=== PATIENT | male | born 1950 | race African-American/Black ===

== ENCOUNTER 2016-12-23 22:23 | Emergency (ER) | payer BC ==
[2016-12-24] MEDS ORDERED: ONDANSETRON 4 MG TAB.RAPDIS PO ONE (01:02)
[2016-12-24] MEDS ORDERED: OXYCODONE-ACETAMINOPHEN 5-325 MG TABLET PO ONE (01:02)
--- NOTE | 2016-12-24 01:05 | ER Document Report ---
HPI - HPI Patient complains to provider of: Dental pain Pain Level: 5 Context: Patient is a 66-year-old male that comes emergency department with chief complaint of pain in his left lower jaw, states she was evaluated by the dentist , placed on penicillin for 10 days, has a follow-up appointment already, he is taking diclofenac for pain, he states he is still in a lot of pain. Patient denies any fever, sore throat, neck swelling. - DERM Skin Color: Normal Past Medical History - General Information source: Patient - Social History Smoking Status: Never Smoker Frequency of alcohol use: None Lives with: Family Family History: Reviewed & Not Pertinent Patient has suicidal ideation: No Patient has homicidal ideation: No - Past Medical History Cardiac Medical History: Reports: Hx Hypertension Renal/ Medical History: Denies: Hx Peritoneal Dialysis Musculoskeltal Medical History: Denies Hx Arthritis, Denies Hx Gout Surgical Hx: Negative - Immunizations Immunizations up to date: Yes Hx Diphtheria, Pertussis, Tetanus Vaccination: Yes Vertical Provider Document - CONSTITUTIONAL General Appearance: WD/WN, No Apparent Distress - INFECTION CONTROL TRAVEL OUTSIDE OF THE [place] IN LAST 30 DAYS: No - HEENT HEENT: Atraumatic, Normocephalic Mouth Diagram: 1 - Dental caries with pulpitis, no abscess or significant swelling noted, no other abnormality noted - NECK Neck: Normal Inspection - RESPIRATORY Respiratory: Breath Sounds Normal, No Respiratory Distress - CARDIOVASCULAR Cardiovascular: Regular Rate, Regular Rhythm - GI/ABDOMEN Gastrointestinal: Abdomen Soft, Abdomen Non-Tender - BACK Back: Normal Inspection - MUSCULOSKELETAL/EXTREMETIES Musculoskeletal/Extremeties: MAEW, FROM, Non-Tender. negative: Tender - NEURO Level of Consciousness: Awake, Alert, Appropriate Motor/Sensory: No Motor Deficit, No Sensory Deficit - DERM Integumentary: Warm, Dry, No Rash Course - Re-evaluation Re-evalutation: Patient with dental pain, providing with Percocet for pain, patient is very on amoxicillin, no abscess or evidence of soft tissue infection. Patient hypertensive, however he is requesting to leave, states he will take his blood pressure medication at home which she is due for this morning. Discharge - Discharge Clinical Impression: Pain, dental Condition: Stable Disposition: HOME, SELF-CARE Additional Instructions: Take the Percocet as directed for pain if needed, continue your penicillin antibiotic, follow up with your dentist. You can take the diclofenac for pain, however I recommend skipping this for 1-2 days and drinking plenty of fluids because you were taking this frequently. Return to emergency department for any concerning or worsening symptoms including swelling, difficulty swallowing, etc. Prescriptions: Oxycodone HCl/Acetaminophen [Percocet 5-325 mg Tablet] 1 - 2 tab PO Q4H PRN #20 tablet PRN Reason: Referrals: NILS TY MD [Primary Care Provider] - Follow up as needed
[2016-12-24 01:31] VITALS: BP 171/94
== END 2016-12-24 01:29 | disposition home or self-care (01) ==
LOC: ER 22:23
DX: K08.9 Disorder of teeth and supporting structures, unspecified (principal); R68.84 Jaw pain; I10 Essential (primary) hypertension
CPT/HCPCS: 99282; S0119

== ENCOUNTER → 2017-06-08 | Outpatient (CLI) | payer BC ==
--- NOTE | 2017-06-08 11:52 | RADIOLOGY REPORT (SQ) ---
EXAM DESCRIPTION: CTA CHEST COMPLETED DATE/TIME: 06/08/2017 11:31 am REASON FOR STUDY: CHEST PAIN (R07.9) R07.9 CHEST PAIN, UNSPECIFIED COMPARISON: None. TECHNIQUE: CT scan of the chest performed using helical scanning technique with dynamic intravenous contrast injection. Images reviewed with lung, soft tissue and bone windows. Reconstructed coronal and sagittal MPR images reviewed. Additional 3 dimensional post-processing performed to develop Maximal Intensity Projection images (MS P). All images stored on PACS. All CT scanners at this facility use dose modulation, iterative reconstruction, and/or weight based d osing when appropriate to reduce radiation dose to as low as reasonably achievable (ALARA). [facility]: Dose Right [facility]: CareDose [facility]: Dose Right [facility]: Teradose 4D [facility]: [employer] Mobile CONTRAST TYPE AND DOSE: contrast/concentration: Isovue 370.00 mg/ml; Total Contrast Delivered: 68.0 ml; Total Saline Delivered: 111.0 ml RENAL FUNCTION: Creatinine 1.1. RADIATION DOSE: Up-to-date CT equipment and radiation dose reduction techniques were employed. CTDIv ol: 9.4 - 13.4 mGy. DLP: 548 mGy-cm. . LIMITATIONS: None. FINDINGS: LUNGS AND PLEURA: No masses, infiltrates, pneumothorax. No pleural effusions, calcificati ons. AORTA AND GREAT VESSELS: No aneurysm or dissection. HEART: No pericardial effusion. PULMONARY ARTERIES: No emboli visualized in the main pulmonary arteries or the segmental branches. HILAR AND MEDIASTINAL STRUCTURES: No identified masses or abnormal nodes. HARDWARE: None in the chest. UPPER ABDOMEN: Several renal cysts, incompletely imaged. Limited exam. THYROID AND OTHER SOFT TISSUES: No masses. No adenopathy. BONES: No acute or significant finding. 3D MIPS: Confirm above findings. OTHER: No other significant finding. IMPRESSION: NORMAL CTA OF THE CHEST. NO PULMONARY EMBOLI. TECHNICAL DOCUMENTATION: JOB ID: [id number] Quality ID # [id number]: Final reports with documentation of one or more dose reduction techniques (e.g., Au tomated exposure control, adjustment of the mA and/or kV according to patient size, use of iterative reconstruction technique) 2010 [employer]- All Rights Reserved
== END ==
LOC: RAD 10:55
PROVIDERS: ATTEND Internal Medicine
DX: R07.9 Chest pain, unspecified (principal)
CPT/HCPCS: 71275; 82565

== ENCOUNTER 2017-06-23 12:58 | Emergency (ER) | payer OTHER, BC ==
[2017-06-23 13:04] VITALS: BP 132/86
--- NOTE | 2017-06-23 13:16 | ER Document Report ---
ED General - General Chief Complaint: High Blood Pressure Stated Complaint: BLOOD PRESSURE PROBLEMS Time Seen by Provider: 06/23/17 13:10 Mode of Arrival: Ambulatory Information source: Patient TRAVEL OUTSIDE OF THE [place] IN LAST 30 DAYS: No - HPI Patient complains to provider of: Elevated blood pressure Onset: Yesterday Onset/Duration: Intermittent Quality of pain: No pain Exacerbated by: Denies Relieved by: Denies Recently seen / treated by doctor: Yes Notes: Patient is a 66-year-old male with a history of high blood pressure who started medications for such 2 weeks ago, who presents to the emergency room complaining of transiently elevated blood pressure yesterday evening measuring up to 136/104 at one point in time, states this lasted about an hour and then went back down to normal, he was seen by gastroenterology yesterday and started on antibiotics for "infection in stomach", that I can only assume is H Pylori based on the antibiotics that he is on, he is concerned that the antibiotics could have caused his elevated blood pressure, he denies any headaches, no nausea or vomiting, no vision changes and no chest pain - Related Data Allergies/Adverse Reactions: No Known Allergies Allergy (Unverified 06/23/17 13:06) Past Medical History - General Information source: Patient - Social History Smoking Status: Never Smoker Frequency of alcohol use: None Drug Abuse: None Family History: Reviewed & Not Pertinent - Past Medical History Cardiac Medical History: Reports: Hx Hypertension Renal/ Medical History: Denies: Hx Peritoneal Dialysis Musculoskeltal Medical History: Denies Hx Arthritis, Denies Hx Gout Past Surgical History: Reports: Hx Orthopedic Surgery - right knee - Immunizations Immunizations up to date: Yes Hx Diphtheria, Pertussis, Tetanus Vaccination: Yes Review of Systems - Review of Systems Constitutional: No symptoms reported EENT: No symptoms reported Cardiovascular: No symptoms reported Respiratory: No symptoms reported Gastrointestinal: No symptoms reported Genitourinary: No symptoms reported Male Genitourinary: No symptoms reported Musculoskeletal: No symptoms reported Skin: No symptoms reported Hematologic/Lymphatic: No symptoms reported Neurological/Psychological: No symptoms reported Physical Exam - Vital signs Vitals: Temp Pulse Resp BP Pulse Ox 97.7 F 80 16 132/86 H 98 06/23/17 13:01 06/23/17 13:01 06/23/17 13:01 06/23/17 13:01 06/23/17 13:01 Interpretation: Normal - General General appearance: Appears well, Alert - HEENT Head: Normocephalic, Atraumatic Eyes: Normal Pupils: PERRL - Respiratory Respiratory status: No respiratory distress Chest status: Nontender Breath sounds: Normal Chest palpation: Normal - Cardiovascular Rhythm: Regular Heart sounds: Normal auscultation Murmur: No - Abdominal Inspection: Normal Distension: No distension Bowel sounds: Normal Tenderness: Nontender Organomegaly: No organomegaly - Back Back: Normal, Nontender - Extremities General upper extremity: Normal inspection, Nontender, Normal color, Normal ROM , Normal temperature General lower extremity: Normal inspection, Nontender, Normal color, Normal ROM , Normal temperature, Normal weight bearing. No: [place]'s sign - Neurological Neuro grossly intact: Yes Cognition: Normal Orientation: AAOx4 Negrito Coma Scale Eye Opening: Spontaneous Negrito Coma Scale Verbal: Oriented [place] Coma Scale Motor: Obeys Commands Negrito Coma Scale Total: 15 Speech: Normal Motor strength normal: LUE, RUE, LLE, RLE Sensory: Normal - Psychological Associated symptoms: Normal affect, Normal mood - Skin Skin Temperature: Warm Skin Moisture: Dry Skin Color: Normal Course - Re-evaluation Re-evalutation: 06/23/17 13:18 3 days patient's blood pressure is relatively normal in the emergency room, he has no symptoms concerning for any endorgan damage related to elevated blood pressure, since he had one episode of transiently elevated blood pressure I reassured patient that he should continue his medications as advised, follow-up with his primary care provider or return if symptoms worsen, patient acknowledges understanding and agreement with this plan - Vital Signs Vital signs: Temp Pulse Resp BP Pulse Ox 97.7 F 80 16 132/86 H 98 06/23/17 13:01 06/23/17 13:01 06/23/17 13:01 06/23/17 13:01 06/23/17 13:01 Discharge - Discharge Clinical Impression: Transient elevated blood pressure Condition: Stable Disposition: HOME, SELF-CARE Instructions: High Blood Pressure ([facility]) Additional Instructions: Follow up with your primary care provider in one to 2 days. Return to the emergency room immediately if symptoms worsen or any additional concerns.
== END 2017-06-23 13:18 | disposition home or self-care (01) ==
LOC: ER 12:58
DX: I10 Essential (primary) hypertension (principal); Z79.899 Other long term (current) drug therapy; B99.9 Unspecified infectious disease
CPT/HCPCS: 99283

== ENCOUNTER → 2018-08-24 | Outpatient (CLI) | payer OTHER, BC | LOC: OD 11:50 | PROVIDERS: ATTEND Otolaryngology | DX: J30.9 Allergic rhinitis, unspecified (principal) | CPT/HCPCS: 36415; 82785; 86003 ==

== ENCOUNTER → 2019-02-21 | Outpatient (CLI) | payer OTHER, BC ==
[2019-02-21 11:20] LABS: APPEARANCE,URINE CLEAR; BILIRUBIN,URINE NEGATIVE (NEGATIVE); COLOR,URINE YELLOW; GLUCOSE, URINE NEGATIVE (NEGATIVE); KETONES,URINE NEGATIVE (NEGATIVE); LEUKOCYTE ESTERASE,URINE NEGATIVE (NEGATIVE); NITRITE,URINE NEGATIVE (NEGATIVE); PROTEIN,URINE NEGATIVE (NEGATIVE); URINE SPECIFIC GRAVITY 1.024; UROBILINOGEN,URINE NEGATIVE mg/dL (<2.0)
[2019-02-21 11:38] LABS: ABSOLUTE LYMPHOCYTES (AUTO) 1.9 10^3/uL (0.5-4.7); ABSOLUTE MONOCYTES (AUTO) 0.3 10^3/uL (0.1-1.4); BASOPHILS % (AUTO) 0.4 % (0-2); EOSINOPHILS % (AUTO) 0.9 % (0-6); HEMATOCRIT 40.4 % (37.9-51.0); HEMOGLOBIN 13.9 g/dL (13.5-17.0); LYMPHOCYTES % (AUTO) 45.2 % (13-45); MEAN CORPUSCULAR HEMOGLOBIN 30.4 pg (27.0-33.4); MEAN CORPUSCULAR HGB CONC 34.4 g/dL (32.0-36.0); MEAN CORPUSCULAR VOLUME 88 fl (80-97); MONOCYTES % (AUTO) 7.5 % (3-13); PLATELET COUNT 218 10^3/uL (150-450); RED BLOOD COUNT 4.58 10^6/uL (4.35-5.55); RED CELL DISTRIBUTION WIDTH 12.8 % (11.5-14.0); TOTAL CELLS COUNTED % (AUTO) 100 %; WHITE BLOOD COUNT 4.2 10^3/uL (4.0-10.5)
[2019-02-21 12:04] LABS: ALANINE AMINOTRANSFERASE 30 U/L (21-72); ALBUMIN 3.8 g/dL (3.5-5.0); ALKALINE PHOSPHATASE 53 U/L (38-126); ASPARTATE AMINO TRANSFERASE 38 U/L (17-59); BILIRUBIN,DIRECT 0.3 mg/dL (0.0-0.4); BILIRUBIN,TOTAL 0.8 mg/dL (0.2-1.3); BLOOD UREA NITROGEN 17 mg/dL (7-20); CALCIUM 9.5 mg/dL (8.4-10.2); CHOLESTEROL 202.45 mg/dL (0-200); GLUCOSE 94 mg/dL (75-110); POTASSIUM 3.9 mmol/L (3.6-5.0); TRIGLYCERIDES 113 mg/dL (<150); URIC ACID 8.4 mg/dL (3.5-8.5)
[2019-02-21 12:09] LABS: ANION GAP 5 (5-19); CARBON DIOXIDE 31 mmol/L (22-30); CHLORIDE 107 mmol/L (98-107); SODIUM 143.4 mmol/L (137-145)
[2019-02-21 12:15] LABS: DIRECT LDL 111 mg/dL (<100)
[2019-02-21 12:19] LABS: FREE T4 (FREE THYROXINE) 0.97 ng/dL (0.78-2.19)
[2019-02-21 12:33] LABS: THYROID STIMULATING HORMONE 1.76 uIU/mL (0.47-4.68)
[2019-02-22 11:38] LABS: CREATININE URINE 306.1 mg/dL (Not Estab.); MICROALBUMIN URINE 4.1 ug/mL (Not Estab.)
== END ==
LOC: OD 09:58
PROVIDERS: ATTEND Internal Medicine
DX: I10 Essential (primary) hypertension (principal)
CPT/HCPCS: 36415; 80053; 80061; 81001; 82043; 82570; 84439; 84443; 84550; 85025

== ENCOUNTER 2019-07-01 10:23 | Inpatient (IN) | payer MEDICARE, BC ==
[2019-07-01] MEDS ORDERED: NORMAL SALINE 1000 ML 1,000 ML IV ONE ×2 (10:50→12:02)
--- NOTE | 2019-07-01 10:50 | ER Document Report ---
ED General - General Chief Complaint: Blood Pressure Problem Stated Complaint: BLOOD PRESSURE ISSUES Time Seen by Provider: 07/01/19 10:47 Primary Care Provider: NILS TY MD [Primary Care Provider] - Follow up as needed Notes: HPI: Patient is a 68-year-old male who presents today stating over the last 2 to 3 days he has felt a little lightheaded and dizzy when he stands and walks around for an extended period of time. He denies any real headache, blurry vision, neck pain, chest pain, abdominal pain, palpitations, or weakness or numbness. Patient is on a blood pressure medication. He states that there is been no increase or change in his blood pressure medication regimen. He denies any illnesses such as vomiting, diarrhea, or dysuria. Patient does work outside and states that he has been sweating a lot. He has been drinking water however. Patient states his blood pressure readings have been much lower than normal. He states that they have been in the 80s to 90s systolic. ROS: See HPI All other review of systems reviewed and otherwise negative Reviewed vital signs and nursing note as charted by RN. PHYSICAL EXAM: CONSTITUTIONAL: Alert and oriented and responds appropriately to questions. Well-appearing; well-nourished HEAD: Normocephalic; atraumatic EYES: PERRL; full extraocular range of motion; no nystagmus ENT: Normal nose; no rhinorrhea; moist mucous membranes; pharynx without lesions noted NECK: Supple without meningismus; non-tender; no carotid bruit; no cervical lymphadenopathy, no masses CARD: Regular rate and rhythm; no murmurs; symmetric distal pulses RESP: Normal chest excursion without splinting or tachypnea; breath sounds clear and equal bilaterally ABD/GI: Normal bowel sounds; non-distended; soft, non-tender; no abdominal masses or bruits to auscultation BACK: The back appears normal and is non-tender to palpation EXT: Normal ROM in all joints; non-tender to palpation; no edema SKIN: No acute lesions noted NEURO: CN 2-12 intact; 5/5 bilateral upper and lower extremity strength with sensation intact to light touch PSYCH: The patient's mood and manner are appropriate. Grooming and personal hygiene are appropriate. TRAVEL OUTSIDE OF THE [place] IN LAST 30 DAYS: No - Related Data Allergies/Adverse Reactions: No Known Allergies Allergy (Verified 07/01/19 10:27) Past Medical History - Social History Smoking Status: Unknown if Ever Smoked Family History: Reviewed & Not Pertinent - Past Medical History Cardiac Medical History: Reports: Hx Hypertension Renal/ Medical History: Denies: Hx Peritoneal Dialysis Musculoskeletal Medical History: Denies Hx Arthritis, Denies Hx Gout Past Surgical History: Reports: Hx Orthopedic Surgery - right knee - Immunizations Immunizations up to date: Yes Hx Diphtheria, Pertussis, Tetanus Vaccination: Yes Physical Exam - Vital signs Vitals: Temp Pulse Resp BP Pulse Ox 97.5 F 71 16 96/53 L 98 07/01/19 10:32 07/01/19 10:32 07/01/19 10:32 07/01/19 10:32 07/01/19 10:32 Course - Re-evaluation Re-evalutation: Given the above history and physical examination, with no focal neurological deficits, chest pain, or abdominal pain, we will obtain basic labs, cardiac panel, EKG, obtain orthostatics, and reassess. I would like to evaluate for the possibility of acute dehydration, cardiac abnormality, or other electrolyte disturbance. I have an extremely low pretest probability for ACS, CVA, or an ac jonah intra-abdominal abnormality. 07/01/19 10:50 EKG shows a heart of 64, normal sinus rhythm, normal axis, no ST elevation or depression 07/01/19 11:15 Orthostatics as recorded showing a slight increase in heart rate with an actual increase in blood pressure from the supine to standing location. 07/01/19 12:02 Patient does appear to have acute renal failure. Vital signs otherwise are stable. I have replaced the fluids. Blood pressure was stable. 1 L of normal saline has been given and I will start the patient on 150/h. I have also replaced the patient's potassium orally. I spoken with the primary care physician who has accepted the patient for admission. - Vital Signs Vital signs: Temp Pulse Resp BP Pulse Ox 97.5 F 59 L 10 L 85/46 L 100 07/01/19 10:32 07/01/19 11:04 07/01/19 11:02 07/01/19 11:04 07/01/19 11:02 - Laboratory Result Diagrams: 07/01/19 10:42 07/01/19 10:42 Laboratory results interpreted by me: 07/01/19 07/01/19 07/01/19 10:42 10:42 11:42 Hgb 13.3 L Sodium 136.1 L Potassium 3.3 L BUN 52 H Creatinine 2.26 H Est GFR ( Amer) 35 L Est GFR (MDRD) Non-Af 29 L Glucose 137 H Creatine Kinase 909 H Urine Ascorbic Acid 40 H Critical Care Note - Critical Care Note Total time excluding time spent on procedures (mins): 35 Discharge - Discharge Clinical Impression: Dehydration, Low serum potassium Acute renal failure Qualifiers: Acute renal failure type: unspecified Qualified Code(s): N17.9 - Acute kidney failure, unspecified Condition: Fair Disposition: ADMITTED INPATIENT Admitting Provider: Gabriela Unit Admitted: [facility] Referrals: NILS TY MD [Primary Care Provider] - Follow up as needed
[2019-07-01 10:52] LABS: ABSOLUTE LYMPHOCYTES (AUTO) 1.4 10^3/uL (0.5-4.7); ABSOLUTE MONOCYTES (AUTO) 0.3 10^3/uL (0.1-1.4); ABSOLUTE NEUT (AUTO) 3.3 10^3/uL (1.7-8.2); BASOPHILS % (AUTO) 0.4 % (0-2); EOSINOPHILS % (AUTO) 0.5 % (0-6); HEMATOCRIT 39.4 % (37.9-51.0); HEMOGLOBIN 13.3 g/dL (13.5-17.0); LYMPHOCYTES % (AUTO) 27.3 % (13-45); MEAN CORPUSCULAR HEMOGLOBIN 29.5 pg (27.0-33.4); MEAN CORPUSCULAR HGB CONC 33.7 g/dL (32.0-36.0); MEAN CORPUSCULAR VOLUME 88 fl (80-97); MONOCYTES % (AUTO) 6.6 % (3-13); PLATELET COUNT 229 10^3/uL (150-450); RED CELL DISTRIBUTION WIDTH 12.7 % (11.5-14.0); SEGMENTED NEUTROPHILS % (AUTO) 65.2 % (42-78); TOTAL CELLS COUNTED % (AUTO) 100 %; WHITE BLOOD COUNT 5.1 10^3/uL (4.0-10.5)
--- NOTE | 2019-07-01 10:53 | ER Document Report ---
ED Medical Screen (RME) - General Chief Complaint: Blood Pressure Problem Stated Complaint: BLOOD PRESSURE ISSUES Time Seen by Provider: 07/01/19 10:47 Primary Care Provider: NILS TY MD [Primary Care Provider] - Follow up as needed Mode of Arrival: Wheelchair Information source: Patient Notes: 68-year-old male presented to ED for complaint of dizziness and low blood pressure. He states he was out working and was not drinking enough fluids states that he was sweating a lot came and became dizzy with a low blood pressure. He states he tried to drink some Gatorade but that did not help him with the dizziness so he went back to drinking water. States his only medical history is high blood pressure and knee surgery from an airplane and blowing out his knee while in the . He is alert oriented respirations regular and unlabored speaking in full sentences. His blood pressure is 86/56 when I examined him. He states he normally runs in the 120s over 70s to 80s and takes blood pressure medicine. I have greeted and performed a rapid initial assessment of this patient. A comprehensive ED assessment and evaluation of the patient, analysis of test results and completion of medical decision making process will be conducted by an additional ED providers. TRAVEL OUTSIDE OF THE [place] IN LAST 30 DAYS: No - Related Data Allergies/Adverse Reactions: No Known Allergies Allergy (Verified 07/01/19 10:27) Past Medical History - Past Medical History Cardiac Medical History: Reports: Hx Hypertension Renal/ Medical History: Denies: Hx Peritoneal Dialysis Musculoskeltal Medical History: Denies Hx Arthritis, Denies Hx Gout Past Surgical History: Reports: Hx Orthopedic Surgery - right knee - Immunizations Immunizations up to date: Yes Hx Diphtheria, Pertussis, Tetanus Vaccination: Yes Physical Exam - Vital signs Vitals: Temp Pulse Resp BP Pulse Ox 97.5 F 71 16 96/53 L 98 07/01/19 10:32 07/01/19 10:32 07/01/19 10:32 07/01/19 10:32 07/01/19 10:32 Course - Vital Signs Vital signs: Temp Pulse Resp BP Pulse Ox 97.5 F 71 16 96/53 L 98 07/01/19 10:32 07/01/19 10:32 07/01/19 10:32 07/01/19 10:32 07/01/19 10:32 - Laboratory Result Diagrams: 07/01/19 10:42 07/01/19 10:42 Doctor's Discharge - Discharge Referrals: NILS TY MD [Primary Care Provider] - Follow up as needed
[2019-07-01 11:07] LABS: ALBUMIN 4.2 g/dL (3.5-5.0); ALKALINE PHOSPHATASE 53 U/L (38-126); ANION GAP 9 (5-19); ASPARTATE AMINO TRANSFERASE 56 U/L (17-59); BILIRUBIN,DIRECT 0.3 mg/dL (0.0-0.4); BLOOD UREA NITROGEN 52 mg/dL (7-20); CALCIUM 8.7 mg/dL (8.4-10.2); CARBON DIOXIDE 27 mmol/L (22-30); CHLORIDE 100 mmol/L (98-107); CREATINE KINASE 909 U/L (55-170); GLUCOSE 137 mg/dL (75-110); POTASSIUM 3.3 mmol/L (3.6-5.0); TOTAL PROTEIN 7.5 g/dL (6.3-8.2)
[2019-07-01 11:18] LABS: CREATINE KINASE MB 2.47 ng/mL (<4.55)
[2019-07-01 11:20] LABS: TROPONIN I < 0.012 ng/mL
[2019-07-01 11:55] LABS: APPEARANCE,URINE CLEAR; BILIRUBIN,URINE NEGATIVE (NEGATIVE); COLOR,URINE YELLOW; GLUCOSE, URINE NEGATIVE (NEGATIVE); KETONES,URINE NEGATIVE (NEGATIVE); LEUKOCYTE ESTERASE,URINE NEGATIVE (NEGATIVE); NITRITE,URINE NEGATIVE (NEGATIVE); PROTEIN,URINE NEGATIVE (NEGATIVE); URINE SPECIFIC GRAVITY 1.018; UROBILINOGEN,URINE NEGATIVE mg/dL (<2.0)
[2019-07-01] MEDS ORDERED: POTASSIUM CHLORIDE 10 MEQ CAPSULE.ER PO ONE (12:03)
[2019-07-01 15:21] LABS: PHOSPHORUS 3.7 mg/dL (2.5-4.5)
[2019-07-01 15:38] LABS: FREE T4 (FREE THYROXINE) 1.05 ng/dL (0.78-2.19)
[2019-07-01 15:52] LABS: THYROID STIMULATING HORMONE 1.17 uIU/mL (0.47-4.68)
[2019-07-01 15:53] LABS: INTERNATIONAL RATION (INR) 0.96; PROTHROMBIN TIME 12.8 SEC (11.4-15.4)
[2019-07-01 15:54] LABS: PARTIAL THROMBOPLASTIN TIME 27.5 SEC (23.5-35.8)
[2019-07-01 16:24] LABS: CREATINE KINASE MB 2.23 ng/mL (<4.55)
[2019-07-01 16:29] LABS: TROPONIN I < 0.012 ng/mL
[2019-07-01] MEDS: NORMAL SALINE 1000 ML 1,000 ML IV PRN ×2 (16:36→22:01)
[2019-07-01] MEDS: HEPARIN SOD (PORCINE) 5,000 UNIT/ML 1 ML VIAL SUBCUT SCH ×2 (16:37→21:56)
--- NOTE | 2019-07-01 16:41 | RADIOLOGY REPORT (SQ) ---
EXAM DESCRIPTION: U/S RETROPERITON (RENAL/AORTA) COMPLETED DATE/TIME: 07/01/2019 4:28 pm REASON FOR STUDY: acute kidney injury COMPARISON: None. TECHNIQUE: Dynamic and static grayscale images acquired of the kidneys and bladder and recorded on P ACS. Additional selected color Doppler and spectral images recorded. LIMITATIONS: None. FINDINGS: RIGHT KIDNEY: The right kidney measures 11.4 by 4.7 x 5.6 cm. The right kidney demonstrat es normal echogenicity. In the lower pole there is a anechoic mass with posterior acoustic enhanceme nt consistent with simple cyst measuring 5.5 x 5.4 x3.9 cm. No hydronephrosis. LEFT KIDNEY: The left kidney measures 14.1 by 8.2 x 6.3 cm. There is anechoic mass with posterior a coustical enhancement consistent with simple cyst d in the upper pole the left kidney measuring 7.9 x 9 x 6.4 cm. No hydronephrosis. URINARY BLADDER: Decompressed. Left ureteral jet visualized. IMPRESSION: Normal renal ultrasound with evidence of simple cyst lower pole right kidney and simple cyst noted in upper pole left. TECHNICAL DOCUMENTATION: JOB ID: [id number] 2010 [employer]- All Rights Reserved Reading location - IP/workstation name: [email or web address]
--- NOTE | 2019-07-01 16:43 | RADIOLOGY REPORT (SQ) ---
EXAM DESCRIPTION: MRI CERVICAL SPINE WITHOUT COMPLETED DATE/TIME: 07/01/2019 4:16 pm REASON FOR STUDY: cervical radiculopathy . Left arm radiating pain and weakness. COMPARISON: CT soft tissue neck 09/04/2011. TECHNIQUE: Sagittal and Axial imaging includes T1, T2, STIR and gradient echo sequences. LIMITATIONS: None. FINDINGS: ALIGNMENT: Normal. VERTEBRAE: Intact. BONE MARROW: Endplate reactive changes are noted at C3, C4, C5, C6, C7 and T1. DISCS: There is multilevel degenerative disc disease. HARDWARE: None in the spine. CORD AND BASE OF BRAIN: Normal in size and signal intensity. C1-C2: No significant spinal stenosis. C2-C3: No significant spinal stenosis or exit foraminal stenosis. C3-C4: No significant spinal stenosis. Diffuse disc bulging and facet arthropathy with moderate bila teral neural foraminal stenosis. C4-C5: No significant spinal stenosis. Diffuse disc bulging paracentral to the left and facet arthro bayron with mild right neural foraminal stenosis and moderate left neural foraminal stenosis. C5-C6: No significant spinal stenosis. Diffuse disc bulging and facet arthropathy with mild right ne ural foraminal stenosis and moderate left neural foraminal stenosis. C6-C7: No significant spinal stenosis. Diffuse disc bulging with no significant exit foraminal steno sis. C7-T1: No significant spinal stenosis or exit foraminal stenosis. UPPER THORACIC: Incompletely imaged. No significant spinal stenosis or exit foraminal stenosis. IMPRESSION: Multilevel degenerative disc disease. No significant spinal stenosis. TECHNICAL DOCUMENTATION: JOB ID: [id number] 2010 [employer]- All Rights Reserved Reading location - IP/workstation name: [email or web address]
--- NOTE | 2019-07-01 19:07 | EKG REPORT ---
SEVERITY:- NORMAL ECG - SINUS RHYTHM : Confirmed by: Tahmina Vazquez MD 01-Jul-2019 19:06:40
[2019-07-01 22:28] LABS: CREATINE KINASE MB 1.74 ng/mL (<4.55)
[2019-07-01 22:36] LABS: TROPONIN I < 0.012 ng/mL
[2019-07-01 23:36] LABS: URINE AMPHETAMINES SCREEN NEGATIVE; URINE BARBITURATES SCREEN NEGATIVE; URINE BENZODIAZEPINES SCREEN NEGATIVE; URINE COCAINE SCREEN NEGATIVE; URINE MARIJUANA (THC) SCREEN NEGATIVE; URINE METHADONE SCREEN NEGATIVE; URINE PHENCYCLIDINE SCREEN NEGATIVE
[2019-07-02 03:19] LABS: ABSOLUTE LYMPHOCYTES (AUTO) 2.1 10^3/uL (0.5-4.7); ABSOLUTE MONOCYTES (AUTO) 0.4 10^3/uL (0.1-1.4); ABSOLUTE NEUT (AUTO) 2.1 10^3/uL (1.7-8.2); BASOPHILS % (AUTO) 0.6 % (0-2); HEMATOCRIT 33.2 % (37.9-51.0); HEMOGLOBIN 11.5 g/dL (13.5-17.0); LYMPHOCYTES % (AUTO) 44.5 % (13-45); MEAN CORPUSCULAR HEMOGLOBIN 30.2 pg (27.0-33.4); MEAN CORPUSCULAR HGB CONC 34.6 g/dL (32.0-36.0); MEAN CORPUSCULAR VOLUME 87 fl (80-97); PLATELET COUNT 204 10^3/uL (150-450); SEGMENTED NEUTROPHILS % (AUTO) 44.9 % (42-78); TOTAL CELLS COUNTED % (AUTO) 100 %; WHITE BLOOD COUNT 4.7 10^3/uL (4.0-10.5)
[2019-07-02 03:34] LABS: ALBUMIN 2.9 g/dL (3.5-5.0); ALKALINE PHOSPHATASE 43 U/L (38-126); ANION GAP 5 (5-19); ASPARTATE AMINO TRANSFERASE 38 U/L (17-59); BILIRUBIN,DIRECT 0.2 mg/dL (0.0-0.4); BILIRUBIN,TOTAL 0.5 mg/dL (0.2-1.3); BLOOD UREA NITROGEN 38 mg/dL (7-20); CALCIUM 8.1 mg/dL (8.4-10.2); CARBON DIOXIDE 28 mmol/L (22-30); CHLORIDE 107 mmol/L (98-107); GLUCOSE 96 mg/dL (75-110); POTASSIUM 3.9 mmol/L (3.6-5.0); TOTAL PROTEIN 5.7 g/dL (6.3-8.2); TRIGLYCERIDES 86 mg/dL (<150)
[2019-07-02 03:45] LABS: CREATINE KINASE MB 1.29 ng/mL (<4.55); DIRECT LDL 119 mg/dL (<100)
[2019-07-02 03:47] LABS: TROPONIN I < 0.012 ng/mL
[2019-07-02] MEDS: NORMAL SALINE 1000 ML 1,000 ML IV PRN (06:11)
[2019-07-02] MEDS: HEPARIN SOD (PORCINE) 5,000 UNIT/ML 1 ML VIAL SUBCUT SCH (06:11)
[2019-07-02 10:41] VITALS: BP 111/60
--- NOTE | 2019-07-02 11:53 | PDOC H&P ---
History of Present Illness Admission Date/PCP: 07/01/19 12:32 NILS TY MD History of Present Illness: PARIS DENNEY is a 68 year old male, he came to the emergency room for evaluation of "blood pressure problem", he stated he felt lightheaded, dizzy when he stands and walk around for extended period of time. He denied any headache, loss of vision. In the emergency room he was evaluated the blood pressure recorded initially was 96/53. I saw him in the office last week couple of times when he came for evaluation of neck pain at that time I diagnosed him with cervical disc disease and I reassured him, at the time, he was also found to have a low blood pressure, advised him to hold on the antihypertensive medication he was on for the control of his blood pressure he normally takes Benicar and HCTZ 20/12.51 tablet daily for the control blood pressure. 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 When I saw him in the office last week he also showed me a supplement that he takes on is stated that the supplement could also reduce blood pressure, more importantly the comprehensive metabolic analysis that was drawn in the emergency room demonstrated serum creatinine of 2.26 suggesting acute kidney injury, he has no history of chronic kidney disease also found was elevated serum creatinine at 909. Kidney ultrasound was done it showed normal size right and left kidneys both kidneys of simple cyst measuring 4.5 x 5.4 cm in size, the cyst was in the lower pole of the right kidney and also in the upper pole of the left kidney. He also complained of neck pain with radicular symptoms. MRI of the neck was obtained it demonstrated diffuse bulging disc from C4-C7 with no significant spinal stenosis. Past Medical History Cardiac Medical History: Reports: Hypertension Past Surgical History Past Surgical History: Reports: Orthopedic Surgery - right knee Social History Smoking Status: Never Smoker Frequency of Alcohol Use: None Hx Recreational Drug Use: No Drugs: None Hx Prescription Drug Abuse: No Family History Family History: Reviewed & Not Pertinent Parental Family History Reviewed: Yes Children Family History Reviewed: Yes Sibling(s) Family History Reviewed.: Yes Medication/Allergy Home Medications: Krill/Om-3/Dha/Epa/Phospho/Ast [Megared [place]-3 Krill Oil Sfgl] 1 each PO DAILY 07/01/19 Multivitamin [Tab-A-Christie (Multiple Vitamin) Tablet] 1 tab PO DAILY 07/01/19 Allergies/Adverse Reactions: No Known Allergies Allergy (Verified 07/01/19 10:27) Review of Systems Constitutional: ABSENT: chills, fever(s), headache(s), weight gain, weight loss Eyes: ABSENT: visual disturbances Ears: ABSENT: hearing changes Cardiovascular: ABSENT: chest pain, dyspnea on exertion, edema, orthropnea, palpitations Respiratory: ABSENT: cough, hemoptysis Gastrointestinal: ABSENT: abdominal pain, constipation, diarrhea, hematemesis, hematochezia, nausea, vomiting Genitourinary: ABSENT: dysuria, hematuria Musculoskeletal: ABSENT: joint swelling Integumentary: ABSENT: rash, wounds Neurological: ABSENT: abnormal gait, abnormal speech, confusion, dizziness, focal weakness, syncope Psychiatric: ABSENT: anxiety, depression, homidical ideation, suicidal ideation Endocrine: ABSENT: cold intolerance, heat intolerance, menstrual abnormalities, polydipsia, polyuria Hematologic/Lymphatic: ABSENT: easy bleeding, easy bruising, lymphadenopathy Physical Exam Vital Signs: Temp Pulse Resp BP Pulse Ox 97.6 F 62 18 111/60 98 07/02/19 09:20 07/02/19 09:20 07/02/19 09:20 07/02/19 10:40 07/02/19 09:20 Intake & Output 07/01/19 07/02/19 07/03/19 06:59 06:59 06:59 Intake Total 4180 Output Total 200 Balance 3980 Weight 80 kg General appearance: PRESENT: no acute distress, well-developed, well-nourished Head exam: PRESENT: atraumatic, normocephalic Eye exam: PRESENT: conjunctiva pink, EOMI, PERRLA Ear exam: PRESENT: normal external ear exam Mouth exam: PRESENT: moist, tongue midline Neck exam: PRESENT: full ROM Respiratory exam: PRESENT: clear to auscultation britt Cardiovascular exam: PRESENT: RRR, +S1, +S2 Pulses: PRESENT: normal dorsalis pedis pul, +2 pedal pulses bilateral Vascular exam: PRESENT: normal capillary refill GI/Abdominal exam: PRESENT: normal bowel sounds, soft Rectal exam: PRESENT: deferred Neurological exam: PRESENT: alert, awake, oriented to person, oriented to place, oriented to time, oriented to situation, CN II-XII grossly intact Psychiatric exam: PRESENT: appropriate affect, normal mood Skin exam: PRESENT: dry, intact, warm Results Laboratory Results: 07/02/19 03:08 07/02/19 03:08 07/01/19 07/01/19 07/01/19 10:42 10:42 11:42 WBC RBC Hgb Hct MCV MCH MCHC RDW Plt Count Seg Neutrophils % Sodium Potassium Chloride Carbon Dioxide Anion Gap BUN Creatinine Est GFR ( Amer) Glucose Calcium Phosphorus 3.7 Magnesium 2.9 H Total Bilirubin AST Alkaline Phosphatase Ammonia Total Protein Albumin Triglycerides Cholesterol LDL Cholesterol Direct VLDL Cholesterol HDL Cholesterol Amylase 168 H Lipase 280.2 TSH 1.17 Free T4 1.05 Urine Color YELLOW Urine Appearance CLEAR Urine pH 5.0 Ur Specific [place] 1.018 Urine Protein NEGATIVE Urine Glucose (UA) NEGATIVE Urine Ketones NEGATIVE Urine Blood NEGATIVE Urine Nitrite NEGATIVE Ur Leukocyte Esterase NEGATIVE Urine WBC (Auto) 1 Urine RBC (Auto) 1 07/01/19 07/02/19 07/02/19 15:25 03:08 03:08 WBC 4.7 RBC 3.80 L Hgb 11.5 L Hct 33.2 L MCV 87 MCH 30.2 MCHC 34.6 RDW 13.0 Plt Count 204 Seg Neutrophils % 44.9 Sodium 140.3 Potassium 3.9 Chloride 107 Carbon Dioxide 28 Anion Gap 5 BUN 38 H Creatinine 1.63 H Est GFR ( Amer) 51 L Glucose 96 Calcium 8.1 L Phosphorus Magnesium Total Bilirubin 0.5 AST 38 Alkaline Phosphatase 43 Ammonia < 8.7 L Total Protein 5.7 L Albumin 2.9 L Triglycerides 86 Cholesterol 155.80 LDL Cholesterol Direct 119 H VLDL Cholesterol 17.0 HDL Cholesterol 37 L Amylase Lipase TSH Free T4 Urine Color Urine Appearance Urine pH Ur Specific [place] Urine Protein Urine Glucose (UA) Urine Ketones Urine Blood Urine Nitrite Ur Leukocyte Esterase Urine WBC (Auto) Urine RBC (Auto) 07/01/19 07/01/19 07/01/19 10:42 10:42 10:42 Creatine Kinase 909 H CK-MB (CK-2) 2.47 Troponin I < 0.012 NT-Pro-B Natriuret Pep 18 08/24/19 08/24/19 08/24/19 15:25 15:25 21:10 Creatine Kinase 875 H 681 H CK-MB (CK-2) 2.23 Troponin I < 0.012 NT-Pro-B Natriuret Pep 07/01/19 07/02/19 07/02/19 21:10 03:08 03:08 Creatine Kinase 715 H CK-MB (CK-2) 1.74 1.29 Troponin I < 0.012 < 0.012 NT-Pro-B Natriuret Pep Impressions: Cervical Spine MRI 07/01/19 00:00 IMPRESSION: Multilevel degenerative disc disease. No significant spinal stenosis. Renal Ultrasound 07/01/19 00:00 IMPRESSION: Normal renal ultrasound with evidence of simple cyst lower pole right kidney and simple cyst noted in upper pole left. Assessment & Plan - Diagnosis (1) Acute kidney injury Is this a current diagnosis for this admission?: Yes Plan: He has acute kidney injury, the serum creatinine 2.26, urinalysis was bland suggesting this is most likely prerenal renal or hemodynamic instability, the blood pressure was low, the combination of low blood pressure, dehydration could be the etiology of the acute kidney injury, patient will be treated with IV fluid (2) Elevated creatine phosphokinase level Is this a current diagnosis for this admission?: Yes Plan: The elevated serum creatinine phosphokinase could be secondary to the acute kidney injury and not necessarily a reflection of rhabdomyolysis with secondary acute kidney injury, there is no history of trauma or muscle injury for one want to suspect rhabdomyolysis (3) Kidney cyst, acquired Is this a current diagnosis for this admission?: Yes (4) Cervical radiculopathy Is this a current diagnosis for this admission?: Yes Plan: MRI of the neck demonstrated bulging disc disease
--- NOTE | 2019-07-02 11:58 | PDOC DISCHARGE SUMMARY ---
General - Admit/Disc Date/PCP Admission Date/Primary Care Provider: 07/01/19 12:32 NILS TY MD Discharge Date: 07/02/19 - Discharge Diagnosis (1) Acute kidney injury Is this a current diagnosis for this admission?: Yes (2) Elevated creatine phosphokinase level Is this a current diagnosis for this admission?: Yes (3) Kidney cyst, acquired Is this a current diagnosis for this admission?: Yes (4) Cervical radiculopathy Is this a current diagnosis for this admission?: Yes - Additional Information Discharge Diet: As Tolerated Discharge Activity: Activity As Tolerated, Balance Activity w/Rest, Slowly Increase Activity Home Medications: Krill/Om-3/Dha/Epa/Phospho/Ast [Megared [place]-3 Krill Oil Sfgl] 1 each PO DAILY 07/01/19 Multivitamin [Tab-A-Christie (Multiple Vitamin) Tablet] 1 tab PO DAILY 07/01/19 History of Present Illness History of Present Illness: PARIS DENNEY is a 68 year old male, he came to the emergency room for evaluation of "blood pressure problem", he stated he felt lightheaded, dizzy when he stands and walk around for extended period of time. He denied any headache, loss of vision. In the emergency room he was evaluated the blood pressure recorded initially was 96/53. I saw him in the office last week couple of times when he came for evaluation of neck pain at that time I diagnosed him with cervical disc disease and I reassured him, at the time, he was also found to have a low blood pressure, advised him to hold on the antihypertensive medication he was on for the control of his blood pressure he normally takes Benicar and HCTZ 20/12.51 tablet daily for the control blood pressure. 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 When I saw him in the office last week he also showed me a supplement that he takes on is stated that the supplement could also reduce blood pressure, more importantly the comprehensive metabolic analysis that was drawn in the emergency room demonstrated serum creatinine of 2.26 suggesting acute kidney injury, he has no history of chronic kidney disease also found was elevated serum creatinine at 909. Kidney ultrasound was done it showed normal size right and left kidneys both kidneys of simple cyst measuring 4.5 x 5.4 cm in size, the cyst was in the lower pole of the right kidney and also in the upper pole of the left kidney. He also complained of neck pain with radicular symptoms. MRI of the neck was obtained it demonstrated diffuse bulging disc from C4-C7 with no significant spinal stenosis. Hospital Course Hospital Course: Patient was admitted for the management of acute kidney injury, elevated serum creatinine phosphokinase, cervical radiculopathy. Yesterday the serum creatinine was 2.2, he was treated with hydration normal saline, the serum creatinine from today's lab work is 1.6. The process was explained to the patient, he will be discharged home today, he will stop the antihypertensive medication on until follow-up in the office for repeat chemistry. The acute kidney injury is most likely secondary to combination of factors including hemodynamic instability from low blood pressure, dehydration are not necessarily intrinsic kidney disease. Physical Exam Vital Signs: Temp Pulse Resp BP Pulse Ox 97.6 F 62 18 111/60 98 07/02/19 11:51 07/02/19 11:51 07/02/19 11:51 07/02/19 11:51 07/02/19 11:51 Intake & Output 07/01/19 07/02/19 07/03/19 06:59 06:59 06:59 Intake Total 4180 Output Total 200 Balance 3980 Weight 80 kg General appearance: PRESENT: no acute distress, well-developed, well-nourished Head exam: PRESENT: atraumatic, normocephalic Eye exam: PRESENT: conjunctiva pink, EOMI, PERRLA Ear exam: PRESENT: normal external ear exam Mouth exam: PRESENT: moist, tongue midline Neck exam: PRESENT: full ROM Respiratory exam: PRESENT: clear to auscultation britt Cardiovascular exam: PRESENT: RRR, +S1, +S2 Vascular exam: PRESENT: normal capillary refill GI/Abdominal exam: PRESENT: normal bowel sounds, soft Rectal exam: PRESENT: deferred Neurological exam: PRESENT: alert, CN II-XII grossly intact Psychiatric exam: PRESENT: appropriate affect, normal mood Skin exam: PRESENT: dry, intact, warm Results Laboratory Results: 07/02/19 03:08 07/02/19 03:08 07/01/19 07/01/1907/01/19 10:42 10:42 11:42 WBC RBC Hgb Hct MCV MCH MCHC RDW Plt Count Seg Neutrophils % Sodium Potassium Chloride Carbon Dioxide Anion Gap BUN Creatinine Est GFR ( Amer) Glucose Calcium Phosphorus 3.7 Magnesium 2.9 H Total Bilirubin AST Alkaline Phosphatase Ammonia Total Protein Albumin Triglycerides Cholesterol LDL Cholesterol Direct VLDL Cholesterol HDL Cholesterol Amylase 168 H Lipase 280.2 TSH 1.17 Free T4 1.05 Urine Color YELLOW Urine Appearance CLEAR Urine pH 5.0 Ur Specific [place] 1.018 Urine Protein NEGATIVE Urine Glucose (UA) NEGATIVE Urine Ketones NEGATIVE Urine Blood NEGATIVE Urine Nitrite NEGATIVE Ur Leukocyte Esterase NEGATIVE Urine WBC (Auto) 1 Urine RBC (Auto) 1 07/01/19 07/02/19 07/02/19 15:25 03:08 03:08 WBC 4.7 RBC 3.80 L Hgb 11.5 L Hct 33.2 L MCV 87 MCH 30.2 MCHC 34.6 RDW 13.0 Plt Count 204 Seg Neutrophils % 44.9 Sodium 140.3 Potassium 3.9 Chloride 107 Carbon Dioxide 28 Anion Gap 5 BUN 38 H Creatinine 1.63 H Est GFR ( Amer) 51 L Glucose 96 Calcium 8.1 L Phosphorus Magnesium Total Bilirubin 0.5 AST 38 Alkaline Phosphatase 43 Ammonia < 8.7 L Total Protein 5.7 L Albumin 2.9 L Triglycerides 86 Cholesterol 155.80 LDL Cholesterol Direct 119 H VLDL Cholesterol 17.0 HDL Cholesterol 37 L Amylase Lipase TSH Free T4 Urine Color Urine Appearance Urine pH Ur Specific [place] Urine Protein Urine Glucose (UA) Urine Ketones Urine Blood Urine Nitrite Ur Leukocyte Esterase Urine WBC (Auto) Urine RBC (Auto) 07/01/19 07/01/19 07/01/19 10:42 10:42 10:42 Creatine Kinase 909 H CK-MB (CK-2) 2.47 Troponin I < 0.012 NT-Pro-B Natriuret Pep 18 07/01/19 07/01/19 07/01/19 15:25 15:25 21:10 Creatine Kinase 875 H 681 H CK-MB (CK-2) 2.23 Troponin I < 0.012 NT-Pro-B Natriuret Pep 07/01/19 07/02/19 07/02/19 21:10 03:08 03:08 Creatine Kinase 715 H CK-MB (CK-2) 1.74 1.29 Troponin I < 0.012 < 0.012 NT-Pro-B Natriuret Pep Impressions: Cervical Spine MRI 07/01/19 00:00 IMPRESSION: Multilevel degenerative disc disease. No significant spinal stenosis. Renal Ultrasound 07/01/19 00:00 IMPRESSION: Normal renal ultrasound with evidence of simple cyst lower pole right kidney and simple cyst noted in upper pole left. Qualifiers - * PATIENT BEING DISCHARGED WITH ANY OF THE FOLLOWING DIAGNOSIS: No VTE patient discharged on overlapping Therapy?: No Reason(s) for not prescribing Overlap Therapy:: Not indicated Stroke Pt being discharged on Anti-thrombolytic therapy?: No Reason(s) for not prescribing Anti-thrombolytic therapy:: Not indicated Stroke Pt being discharged on Anti-coagulation therapy?: No Reason(s) for not prescribing Anti-coagulation therapy:: Not indicated Stroke Pt being discharged on Statins?: No Reason(s) for not prescribing Statins therapy:: Not indicated IN Pt being discharged on Aspirin therapy?: No Reason(s) for not prescribing Aspirin therapy:: Not indicated IN Pt being discharged on Statins?: No Reason(s) for not prescribing Statin therapy:: Not indicated IN Pt discharged ACEI/ARBS?: No Reason(s) for not prescribing ACEI/ARBS:: Not indicated Acute Heart Failure - Is this a Heart Failure Patient?: No 3. Anticoagulant therapy for permanect/persistent/paraoxysmal Afib or Aflutter: Yes
== END 2019-07-02 12:14 | disposition home or self-care (01) | DRG 684 ==
LOC: ER 10:23 → EH 12:32 → 3N 14:00
PROVIDERS: ADMIT Internal Medicine; ATTEND Internal Medicine
DX: N17.9 Acute kidney failure, unspecified (principal); I10 Essential (primary) hypertension; N28.1 Cyst of kidney, acquired; M54.12 Radiculopathy, cervical region; R74.8 Abnormal levels of other serum enzymes; R42 Dizziness and giddiness; Z96.651 Presence of right artificial knee joint
CPT/HCPCS: 36415; 72141; 76770; 80048; 80053; 80061; 80076; 80307; 81001; 82140; 82150; 82550; 82553; 83036; 83690; 83735; 83880; 84100; 84439; 84443; 84484; 85025; 85610; 85730; 87040; 87086; 93005; 93010; 96360; 99285; J1644; J7030

== ENCOUNTER → 2020-03-11 | Outpatient (CLI) | payer MEDICARE, BC ==
[2020-03-11 16:01] LABS: HEMATOCRIT 37.7 % (37.9-51.0); HEMOGLOBIN 13.2 g/dL (13.5-17.0); MEAN CORPUSCULAR VOLUME 89 fl (80-97); PLATELET COUNT 227 10^3/uL (150-450); RED BLOOD COUNT 4.25 10^6/uL (4.35-5.55); RED CELL DISTRIBUTION WIDTH 12.5 % (11.5-14.0); WHITE BLOOD COUNT 4.9 10^3/uL (4.0-10.5)
[2020-03-11 16:16] LABS: ALKALINE PHOSPHATASE 49 U/L (38-126); ANION GAP 5 (5-19); ASPARTATE AMINO TRANSFERASE 35 U/L (17-59); BILIRUBIN,TOTAL 0.4 mg/dL (0.2-1.3); BLOOD UREA NITROGEN 17 mg/dL (7-20); CALCIUM 9.4 mg/dL (8.4-10.2); CARBON DIOXIDE 32 mmol/L (22-30); CHLORIDE 103 mmol/L (98-107); GLUCOSE 105 mg/dL (75-110); POTASSIUM 3.8 mmol/L (3.6-5.0); TOTAL PROTEIN 7.1 g/dL (6.3-8.2)
== END ==
LOC: OD 15:16
PROVIDERS: ATTEND Internal Medicine Gastroenterology
DX: R10.13 Epigastric pain (principal)
CPT/HCPCS: 36415; 80053; 85027

== ENCOUNTER → 2020-04-08 | Outpatient (CLI) | payer MEDICARE, BC ==
[2020-04-08 17:47] LABS: ANION GAP 6 (5-19); BLOOD UREA NITROGEN 18 mg/dL (7-20); CALCIUM 9.4 mg/dL (8.4-10.2); CARBON DIOXIDE 31 mmol/L (22-30); CHLORIDE 104 mmol/L (98-107); GLUCOSE 89 mg/dL (75-110); POTASSIUM 4.1 mmol/L (3.6-5.0)
== END ==
LOC: OD 16:26
PROVIDERS: ATTEND Internal Medicine Gastroenterology
DX: R10.13 Epigastric pain (principal)
CPT/HCPCS: 36415; 80048

== ENCOUNTER → 2020-04-19 | Outpatient (CLI) | payer BC ==
--- NOTE | 2020-04-19 09:11 | RADIOLOGY REPORT (SQ) ---
EXAM DESCRIPTION: U/S ABDOMEN COMPLETE W/O DOP IMAGES COMPLETED DATE/TIME: 04/19/2020 8:55 am REASON FOR STUDY: (R10.13)EPIGASTRIC PAIN R10.13 EPIGASTRIC PAIN COMPARISON: None. TECHNIQUE: Dynamic and static grayscale images acquired of the abdomen and recorded on PACS. Additio nal selected color Doppler and spectral images recorded. Note: Study does not meet criteria for complete doppler/duplex scan LIMITATIONS: None. FINDINGS: PANCREAS: The pancreas is not visualized due to overlying bowel gas. LIVER: The liver measures 16.5 cm in length, normal size. No masses. Echotexture normal. LIVER VASCULATURE: Normal directional flow of the main portal vein and hepatic veins. GALLBLADDER: Gallstones. The gallbladder wall measures 2.4 mm, normal wall thickness. No pericholec ystic fluid. ULTRASOUND-DETECTED NAGEL'S SIGN: Negative. INTRAHEPATIC DUCTS AND COMMON DUCT: CBD measures 3.4 mm in diameter, normal. The intrahepatic ducts normal caliber. No filling defects. INFERIOR VENA CAVA: Normal flow. AORTA: The proximal segment of the abdominal aorta is obscured by overlying bowel gas. The mid and distal segments are patent. RIGHT KIDNEY: The right kidney measures 10.9 x 4.6 cm, normal size. A 4.3 x 4.8 x 4.1 cm cyst. Norm al echogenicity. No hydronephrosis. No calcifications. LEFT KIDNEY: The left kidney measures 14.2 x 4.8 cm, normal size. Normal echogenicity. A very lar ge 9.5 x 8.6 x 7.0 cm cyst. No hydronephrosis. No calcifications. SPLEEN: The spleen measures 7.6 cm in length, normal size. No solid masses. PERITONEAL AND PLEURAL SPACES: No ascites or effusions. OTHER: No other significant finding. IMPRESSION: 1. Gallstones. 2. No evidence of biliary obstruction. 3. Bilateral renal cysts, very large on the left. These findings were partially visualized on the C T-CTA chest examination dated 06/08/2017. 4. The pancreas and mid-distal segments of the abdominal aorta are obscured by overlying bowel gas. TECHNICAL DOCUMENTATION: JOB ID: [id number] 2010 [employer]- All Rights Reserved Reading location - IP/workstation name: [email or web address]
== END ==
LOC: RAD 08:13
PROVIDERS: ATTEND Internal Medicine Gastroenterology
DX: K80.80 Other cholelithiasis without obstruction (principal); R10.13 Epigastric pain; Q61.02 Congenital multiple renal cysts
CPT/HCPCS: 76700

== ENCOUNTER → 2020-07-16 | Outpatient (CLI) | payer BC ==
[2020-07-16 12:18] LABS: HEMATOCRIT 39.6 % (37.9-51.0); HEMOGLOBIN 13.6 g/dL (13.5-17.0); MEAN CORPUSCULAR HEMOGLOBIN 30.2 pg (27.0-33.4); MEAN CORPUSCULAR HGB CONC 34.4 g/dL (32.0-36.0); MEAN CORPUSCULAR VOLUME 88 fl (80-97); PLATELET COUNT 236 10^3/uL (150-450); RED CELL DISTRIBUTION WIDTH 12.7 % (11.5-14.0); WHITE BLOOD COUNT 4.3 10^3/uL (4.0-10.5)
[2020-07-16 12:43] LABS: ALBUMIN 4.1 g/dL (3.5-5.0); ALKALINE PHOSPHATASE 55 U/L (38-126); ANION GAP 6 (5-19); ASPARTATE AMINO TRANSFERASE 44 U/L (17-59); BILIRUBIN,DIRECT 0.2 mg/dL (0.0-0.4); BLOOD UREA NITROGEN 15 mg/dL (7-20); CALCIUM 9.4 mg/dL (8.4-10.2); CARBON DIOXIDE 33 mmol/L (22-30); CHLORIDE 103 mmol/L (98-107); GLUCOSE 93 mg/dL (75-110); POTASSIUM 4.2 mmol/L (3.6-5.0); TOTAL PROTEIN 7.2 g/dL (6.3-8.2)
== END ==
LOC: OD 11:09
PROVIDERS: ATTEND Physician Assistant
DX: N18.9 Chronic kidney disease, unspecified (principal)
CPT/HCPCS: 36415; 80053; 85027

== ENCOUNTER → 2020-09-24 | Outpatient (CLI) | payer BC ==
[2020-09-24 11:33] VITALS: BP 127/72
--- NOTE | 2020-09-24 11:33 | ER [facility] ASSESSMENT REPORT ---
Intake - In the Last 14 days Have you traveled outside [place]?: No Have you been in close contact with someone CONFIRMED: No Worked in Healthcare?: No - Symptoms Subjective Fever([place] feverish): No Chills: No Muscule Aches: No Runny Nose: No Sore Throat: Yes Cough (New or worsening chronic cough): Yes Shortness of breath: No Nausea or Vomiting: No Headache: No Abdominal Pain: No Diarrhea(3 or more loose stools in last 24 hours): No - Do you have any of the following Chronic lung disease: Asthma or emphysema or COPD: No Cystic Fibrosis: No Diabetes: No High Blood Pressure: Yes Cardiovascular Disease: No Chronic Kidney Disease: No Chronic Liver Disease: No Chronic blood disorder like Sickle Cell Disease: No Weak immune system due to disease or medication: No Neurologic condition that limits movement: No Developmental delay - Moderate to Severe: No Recent (within past 2 weeks) or current : No Morbid Obesity (>100 pounds over ideal weight): No - Objective Temperature: 99.0 F Pulse Rate: 82 Respiratory Rate: 18 Blood Pressure: 127/72 O2 Sat by Pulse Oximetry: 95 Objective: Given above, testing performed: If Testing Performed: Test Specimen Type Sent to General - General Information source: Patient Notes: Patient presents to the [facility] for screening for the coronavirus. Patient reports sore throat cough. - Related Data Allergies/Adverse Reactions: No Known Allergies Allergy (Verified 07/01/19 10:27) Past Medical History - General Information source: Patient - Social History Family History: Reviewed & Not Pertinent - Past Medical History Cardiac Medical History: Reports: Hx Hypertension Renal/ Medical History: Denies: Hx Peritoneal Dialysis Musculoskeletal Medical History: Denies Hx Arthritis, Denies Hx Gout Psychiatric Medical History: Denies: Hx Depression Past Surgical History: Reports: Hx Orthopedic Surgery - right knee Physical Exam - Notes Notes: The patient was evaluated during the global Covid 19 pandemic, and that diag nosis was suspected/considered upon their initial presentation. Their evaluation, treatment and testing was consistent with current guidelines for patients who present with complaints or symptoms that may be related to Covid 19. Full physical exam could not be performed due to covid 19 isolation protocols. Constitutional: Nontoxic appearance, no acute distress Eyes: Nonicteric, extraocular movements intact, sclera clear ENT: Posterior pharynx clear without exudates Cardiovascular: Heart rate and rhythm regular, no JVD Respiratory: Breath sounds clear bilaterally, nonlabored breathing, no use of accessory muscles, no tachypnea Gastrointestinal: Abdomen not distended Muculoskeletal: Moves all extremities well Skin: Normal color Neuro: Awake alert oriented, normal speech Psych: Normal mood and affect Diagnostic Results Laboratory Results: Patient presents with upper respiratory symptoms worrisome for possible Covid 19. Patient does not have emergency worrying symptoms such as difficulty breathing, shortness of breath, chest pain, pressure, confusion or cyanosis. Patient appears suitable for discharge as vital signs are stable and patient is nontoxic in appearance. Good return precautions have been discussed with patient, patient verbalized understanding and is agreeable with discharge plan of care at this time. Patient Education/Counseling Counseling/Education: Patient was provided with discharge information including: As a person under investigation for Covid 19, the [place] department of Health and Human Services, division of public health advises you to adhere to the following guidance until your test results are reported to you. If your test result is positive, you will receive additional information from your provider and your local health department at that time. Remain at home until you are cleared by the health provider or public health authorities. Keep a log of visitors to your home, notify any visitors to your home of your isolation status. If you plan to move to a new address or leave the county, notify the local health department in your County. Call your doctor or seek care if you have an urgent medical need. Before seeking medical care, call ahead to get instructions from the provider before arriving at the medical office clinic or hospital. Notify them that you are being tested for the virus that causes Covid 19 so that arrangements can be made, as necessary, to prevent transmission to others in the healthcare setting. Next, notify the local health department in your county. If a medical emergency arises and you need to call 911, inform the first responders that you are being tested for the virus that causes Covid 19. Next, notify the local health department in your county. [facility] Discharge - Discharge Clinical Impression: Encounter for screening laboratory testing for COVID-19 virus Condition: Stable Disposition: Home; Selfcare
[2020-09-24 13:44] LABS: A TYPE INFLUENZA AG NEGATIVE (NEGATIVE); B INFLUENZA AG NEGATIVE (NEGATIVE)
== END ==
LOC: RDC 10:58
PROVIDERS: ATTEND Nurse Practitioner Family
DX: U07.1 COVID-19 (principal)
CPT/HCPCS: 87070; 87880; 87804; 99201; 99211; U0003; C9803; 87635